=== PATIENT | male | born 1945 | race Caucasian/White ===

== ENCOUNTER 2025-04-04 19:36 | Emergency (ER) | payer OTHER, MEDICARE ==
[~2025-04-04] VITALS: Ht 180.3 cm; Wt 108.1 kg
[2025-04-04] MEDS ORDERED: FAMOTIDINE 20 MG/ 2 ML VIAL IV ONE (19:45)
[2025-04-04] MEDS ORDERED: LACTATED RINGER'S 1,000 ML IV ONE (19:45)
[2025-04-04] MEDS ORDERED: EPIPEN AUTO INJECTOR 0.3 MG/0.3 ML ML IM ONE (19:45)
[2025-04-04] MEDS ORDERED: ZESTRIL40 MG PO (19:53)
[2025-04-04] MEDS ORDERED: NORVASC5 MG PO (19:53)
[2025-04-04] MEDS ORDERED: METOPROLOL TART50 MG PO (19:54)
[2025-04-04] MEDS ORDERED: METFORMIN HCL1000 MG PO (19:54)
[2025-04-04] MEDS ORDERED: LIPITOR20 MG (19:55)
[2025-04-04] MEDS ORDERED: VITAMIN D31 ML MISC (19:58)
[2025-04-04] MEDS ORDERED: GLYCOTROL CAPS1 EACH PO (19:59)
[2025-04-04] MEDS ORDERED: METOPROLOL TARTRATE 5 MG/5 ML VIAL IV ONE (21:45)
[2025-04-04] MEDS ORDERED: AMLODIPINE BESYLATE 5 MG TAB PO ONE (22:00)
[2025-04-04 23:27] VITALS: BP 198/96
[2025-04-04] MEDS ORDERED: EPIPEN 2-P0.3 MG/0.3 IM (23:37)
[2025-04-04] MEDS ORDERED: PREDNISONE20 MG PO (23:37)
--- NOTE | 2025-04-05 21:23 | EKG ---
[facility] [address] [facility] [place] [address] Signed Sinus rhythm with 1st degree AV block Right bundle branch block Abnormal ECG No previous ECGs available Confirmed by Greg Baker DO ([id number]) on 04/05/2025 9:22:47 PM Electronically Signed By: GREG BAKER DO 04/05/252122 PATIENT NAME: BHUPINDER BAZAN URSULA Electrocardiogram DATE OF : 43 PHYSICIAN: GREG BAKER DO REPORT #: [id number] REPORT IS CONFIDENTIAL AND NOT TO BE RELEASED WITHOUT AUTHORIZATION
== END 2025-04-04 23:49 | disposition home or self-care (01) ==
LOC: ED 19:36
DX: T63.441A Toxic effect of venom of bees, accidental (unintentional), initial encounter (principal); R22.0 Localized swelling, mass and lump, head; I10 Essential (primary) hypertension; E11.9 Type 2 diabetes mellitus without complications; E78.5 Hyperlipidemia, unspecified; Z79.84 Long term (current) use of oral hypoglycemic drugs; Z79.899 Other long term (current) drug therapy
CPT/HCPCS: 93005; 93010; 96374; 96375; 99283-25; J0169; J0360; J1200; J2919; J7121